=== PATIENT | female | born 1950 | race Caucasian/White ===

== ENCOUNTER 2021-09-19 16:26 | Inpatient (IN) | payer OTHER ==
[~2021-09-19] VITALS: Ht 154.9 cm; Wt 66.8 kg
--- NOTE | 2021-09-20 12:44 | NUR ---
COVID TEST COMPLETED THIS DATE, 09/20/21, AT [facility]. TEST RESULTS NEGATIVE.
--- NOTE | 2021-09-20 15:30 | NUR ---
PT ADMITTED TO UNIT. ALERT AND ORIENTED X 4. PLEASANT AND COOPERATIVE. CONTINUES WITH EXPRESSIVE APHASIA, BUT IF GIVEN TIME, IS ABLE TO MAKE NEEDS KNOWN. QUESTIONS ASKED BY PT WERE ANSWERED AND PT VERBALIZED UNDERSTANDING. DENIED ANY PAIN OR DISCOMFORT AT TIME OF ADMISSION. PT DID TEXT SISTER AND ASKED HER TO BRING IN HER JARDIANCE FOR HER.
--- NOTE | 2021-09-20 16:58 | NUR ---
Case opened to follow for dc planning. Pt admitted to acute rehab from [facility] d/t subacute stroke. She has a hx of a stroke/seizure/htn/dm/s/p avr. She lives indep in a apt in [place] with no steps with elevator access. She has a cane but no other dme, She was indep with gait and adl's and iadl's prior to this stroke. She does not drive. She has a close friend that she relies on for rides and errands. Her two children live out of state. She manages her own medications and finances. Team conf on to determine elos. Cm to clarify pt's pcp. She will likely need dme /hh referrals at dc. Will follow.
[2021-09-20 19:21] VITALS: BP 125/60
--- NOTE | 2021-09-20 22:52 | NUR ---
PT ASSESSMENT COMPLETED AND VSS. MEDS GIVEN ORDERED AND WELL TOLERATED. FALL PRECAUTIONS IN PLACE. UP TO THE BATHROOM WITH ASST/GAIT. STEADY. CONTACTED CARE INFORMATION ASSOCIATE JUAN JOSE BECAUSE PT SAID THAT SHE NORMALLY TAKES 20 UNITS OF LANTUS AT NIGHT AND THAT HER BG WAS TOO HIGH. 14 UNITS OF LANTUS HAD BEEN ORDERED. PER NEW ORDERS FROM [facility] GAVE 20 UNITS OF LANTUS. PT SLEEPING WELL. BED PADDED FOR HX OF SEIZURES. WILL CONTINUE TO MONITOR FREQUENTLY.
[2021-09-21 05:40] LABS: CALCIUM 9.1 mg/dL (8.5-10.1); CREATININE 1.3 mg/dL (0.6-1.0); POTASSIUM 4.3 mmol/L (3.5-5.1)
[2021-09-21 05:44] LABS: HEMATOCRIT 40.3 % (37.0-47.0); HEMOGLOBIN 13.1 gm/dL (12.0-15.0); MCH 29.9 pg (26.0-34.0); MCHC 32.5 g/dL (28.0-37.0); RBC 4.38 mil/uL (4.20-5.00); WBC 10.1 thou/uL (4.0-11.0)
[2021-09-21 06:09] LABS: FOLIC ACID 6.4 ng/mL (8.6-58.9)
[2021-09-21 07:20] VITALS: BP 131/81
--- NOTE | 2021-09-21 12:31 | NUR ---
PT ALERT AND ORIENTED, PLEASANT AND COOPERATIVE. CONTINUES WITH EXP APHASIA, BUT IS ABLE TO MAKE NEEDS KNOWN. COMPLIANT WITH MEDICATIONS. THIS NURSE AND PT SPOKE WITH DR INFANTE ABOUT HER SHORT AND LONG ACTING INSULIN DOSES AT HOME VS. DOSES IN HOSPITAL. DR. INFANTE STATED HE WOULD ADDRESS. DR. SALDAÑA HERE TO SEE PT. NEW ORDER FOR DOXYCYCLINE FOR HIDRADENITIS UNDER LT. BUTTOCK AND BARRIER CREAM TO AREA BID. PT'S FAMILY BROUGHT IN HER JARDIANCE. SENT BOTTLE TO PHARMACY PER PROTOCOL. DENIES ANY PAIN OR DISCOMFORT. DID PARTICIPATE IN THERAPIES TODAY.
[2021-09-21 20:41] VITALS: BP 120/41
--- NOTE | 2021-09-22 02:44 | NUR ---
PT ASSESSMENT COMPLETED AND VSS. MEDS GIVEN ORDERED AND WELL TOLERATED. FALL PRECAUTIONS IN PLACE. UP TO THE BATHROOM WITH ASST/GAIT. BED PADDED FOR SEIZURE PRECAUTIONS. NO SEIZURES NOTED. PT SLEEPING WELL. DENIES NEEDS. WILL CONTINUE TO MONITOR FREQUENTLY.
[2021-09-22 05:36] LABS: GLYCOHEMOGLOBIN (HGB A1C) 10.2 % (4.8-5.6)
[2021-09-22 08:00] VITALS: BP 125/55
--- NOTE | 2021-09-22 08:08 | HC ---
[facility] [place] [address] CONSULTATION Name: ANTONY SAPP Room #: 511-P ADM IN M.R.#: [id number] Admission: 09/20/21 Attend Phys: Alejo Oakley MD Discharge: Date of : 46 Report #: [id number] THIS REPORT FOR: cc: FAM - Family physician unknown FAM - Family physician unknown Faustino Cuba MD ~ DATE OF SERVICE: 09/21/2021 WOUND CARE CONSULTATION NOTE REASON FOR CONSULTATION: Infected sebaceous cyst of left groin. HISTORY OF PRESENT ILLNESS: The patient is a 70-year-old woman admitted to the rehabilitation unit for altered mental status and declining functional capacity. She has been diagnosed with a subacute left parietotemporal region, trace petechial hemorrhage or cerebrovascular accident with MRI of the neck showing severe right vertebral artery stenosis. She has had a CVA in the past. She had some declining status. The patient complains of pain in the left groin from a chronic sebaceous cyst. PAST MEDICAL PROBLEMS: 1. Subacute cerebrovascular accident. 2. Type 2 diabetes mellitus. 3. Hypertension. 4. History of cerebrovascular accident in the past. REVIEW OF SYSTEMS: Reports a boil painful area in her left groin, painful with sitting. MEDICATIONS: Include amlodipine, Plavix, citalopram, Jardiance, insulin lispro, levothyroxine, atorvastatin, bisacodyl, docusate. ALLERGIES: CEPHALOSPORINS, PENICILLINS, SULFA. PHYSICAL EXAMINATION: GENERAL: Shows a well-appearing elderly woman. She is alert, pleasant, conversant, cooperative. HEENT: Mucous membranes are moist. Sclerae white. NECK: Supple. The patient is able to walk. LUNGS: Respirations unlabored. ABDOMEN: Soft. EXTREMITIES: No lower extremity wounds. Patient points to the tender area in her left groin. In the left upper inner thigh near the groin crease, there is a 2 cm scarred irregular area of skin. This appears to be hidradenitis or chronic sebaceous cyst, possibly with previous incision and drainage. There is no redness. The area was mildly tender. There is no discrete cyst abscess or [address] [address] CONSULTATION Name: ANTONY SAPP Room #: 511-P [facility] IN ..#: [id number] Admission: 09/20/21 Attend Phys: Alejo Oakley MD Discharge: Date of : 46 Report #: [id number] boil. IMPRESSION: 1. Admission to rehabilitation unit for altered mental status and decreased functionality. 2. Diabetes mellitus type 2 with skin complications. 3. Possible cerebrovascular accident. 4. Chronic hidradenitis or sebaceous cyst of left groin with inflammation, but no evidence of abscess or acute cyst. PLAN: Order barrier cream to protect the area from rubbing. Order doxycycline 100 mg p.o. b.i.d. for 7 days. Patient may follow up in [facility], for care of this area as outpatient. <ELECTRONICALLY SIGNED> By: Faustino Cuba MD 09/22/21 [id number] Faustino Cuba MD /nt
--- NOTE | 2021-09-22 13:36 | NUR ---
THIS NURSE ASSUMED CARE OF PATIENT AT 0700. PATIENT A&O X 4, ON RA, AND FULLY CONTINENT OF BOWEL AND BLADDER. PATIENT TAKES MEDICATIONS WHOLE WITH THIN LIQUIDS. PATIENT HAS EXPRESSIVE APHASIA AND BS AC HS. INSULIN GIVEN AT ROUTINE OF 4, 7, AND 7 UNITS. BARRIER CREME ON LEFT BUTTOCK FOR CYST. PATIENT ENCOURAGED TO USE INCENTIVE SPIROMETER.
[2021-09-22 19:47] VITALS: BP 128/58
--- NOTE | 2021-09-23 03:21 | NUR ---
ASSUMED CARE AT 1915 OF 09/22. PATIENT IS A&OX4, ABLE TO MAKE NEEDS KNOWN. INTERMITTENTLY EXHIBITING EXPRESSIVE APHASIA. PROVIDED AMPLE TIME TO EXPRESS IDEAS. ORAL MEDS AND INSULIN ADMINISTERED ORDERED. REMAINS ON SEIZURE PRECAUTIONS, BEDS PADDED AND IN LOW POSITION. SLEEPING DURING HOURLY ROUNDS. FALL PRECAUTIONS IN PLACE, CALL LIGHT WITHIN REACH. WILL CONTINUE TO MONITOR.
[2021-09-23 07:34] VITALS: BP 110/50
--- NOTE | 2021-09-23 12:29 | NUR ---
THIS NURSE ASSUMED CARE OF PATIENT AT 0700. PATIENT FULLLY ALERTED, ON ROOM AIR, AND FULLY CONTINENT OF BOTH BOWEL AND BLADDER. PATIENT AMBULATES WITH STAND-BY ASSIST AND GAIT BELT. PATIENT NEEDS BOWEL MOVEMENT AND ADMINISTERED SENNA THIS MORNING. PATIENT TAKES MEDICATIONS WHOLE WITH THIN LIQUIDS. PATIENT CONCERNED ABOUT HIGHER BLOOD SUGAR LEVELS. THIS NURSE CONTACTED DR LACKEY AND REQUESTED INCREASE OF INSULIN. PATIENT PLACED ON SLIDING SCALE. PATIENT ENCOURAGED TO DRINK WATER AND USE INCENTIVE SPIROMETER. PATIENT EXPRESSES NO PAIN.
--- NOTE | 2021-09-23 13:33 | NUR ---
Nutrition: pt admitted to rehab unit with left parietotemporal CVA, aphasia. Consult received stating "malnutrition". Pt is eating 75-100% of meals on Carb controlled, Heart healthy diet. Pt able to communicate to RD no significant weight changes. 09/21 BM. A1C 10.2, BG 202-327. Would benefit from improved BG control. Wound care following for left buttock cyst/hidradenitis. Deferring malnutrition dx to physician as RD without criteria to diagnose. Vitamin D status pending-supplement if indicated. Low nutrition risk.
[2021-09-23 19:31] VITALS: BP 140/57
--- NOTE | 2021-09-23 21:41 | NUR ---
PT REMAIN ALERT AND ORIENT TIMES FOUR. UP IN CHAIR AND WILL CALL WHEN READY TO GO TO BED. VSS, AFEBRILE. DENIES PAIN, SOB AND N/V. SLIGHT EXPRESIVE APHASIA NOTED. SLOW AND STEADY PROGRESS TOWARDS DC GOALS. WILL CONTINUE TO MONITOR.
== END 2021-09-24 | disposition home health service (06) | DRG 65 ==
PROVIDERS: Nurse Practitioner Family; ADMIT Physical Medicine & Rehabilitation; ATTEND Physical Medicine & Rehabilitation
DX: I62.9 Nontraumatic intracranial hemorrhage, unspecified (principal); N17.9 Acute kidney failure, unspecified; I12.9 Hypertensive chronic kidney disease with stage 1 through stage 4 chronic kidney disease, or unspecified chronic kidney disease; R47.01 Aphasia; G40.909 Epilepsy, unspecified, not intractable, without status epilepticus; R53.81 Other malaise; N18.9 Chronic kidney disease, unspecified; F32.9 Major depressive disorder, single episode, unspecified; E11.65 Type 2 diabetes mellitus with hyperglycemia; L73.1 Pseudofolliculitis barbae; L73.2 Hidradenitis suppurativa; L72.3 Sebaceous cyst; E11.22 Type 2 diabetes mellitus with diabetic chronic kidney disease; E03.9 Hypothyroidism, unspecified; L02.234 Carbuncle of groin; Z98.49 Cataract extraction status, unspecified eye; Z88.8 Allergy status to other drugs, medicaments and biological substances; Z88.2 Allergy status to sulfonamides; Z82.49 Family history of ischemic heart disease and other diseases of the circulatory system; Z95.2 Presence of prosthetic heart valve; Z88.0 Allergy status to penicillin; Z87.891 Personal history of nicotine dependence
CPT/HCPCS: 10112